=== PATIENT | female | born 1990 | race Caucasian/White ===

== ENCOUNTER 2025-02-10 16:32 | Emergency (ER) | payer SELFPAY ==
[2025-02-10 16:37] VITALS: BP 180/119
[2025-02-10 16:53] LABS: % Basophils 0.7 % (0-2); % Eosinophils 2.2 % (0-6); % Immature Granulocytes 0.3 % (0-0.5); % Lymphocytes 24.1 % (20.5-51.1); % Monocytes 7.8 % (1.7-9.3); % Neutrophils 64.9 % (42.2-75.2); Absolute Basophils 0.1 10^3/uL (0-0.2); Absolute Eosinophils 0.2 10^3/uL (0-0.7); Absolute Lymphocytes 2.3 10^3/uL (1.2-3.4); Absolute Monocytes 0.7 10^3/uL (0.1-0.6); Absolute Neutrophils 6.2 10^3/uL (1.4-6.5); Hematocrit 42.4 % (37.0-47.0); Hemoglobin 14.6 g/dL (12.0-16.0); Mean Corp Hgb Conc. 34.4 g/dL (33.0-37.0); Mean Corpuscular Hgb 30.4 pg (27.0-31.0); Mean Corpuscular Volume 88.1 fL (81.0-99.0); Mean Platelet Volume 9.7 fL (7.4-10.4); Nucleated Red Blood Cells % 0 %; Platelet Count 247 10^3/uL (130-400); Red Blood Cell Count 4.81 10^6/uL (4.20-5.40); Red Cell Dist. Width 13.6 % (11.5-14.5); White Blood Cell Count 9.5 10^3/uL (4.8-10.8)
[2025-02-10 17:04] LABS: HCG, Serum Qualitative Screen Negative
[2025-02-10 17:07] LABS: ALT (SGPT) 15 U/L (0-35); AST (SGOT) 17 U/L (14-36); Albumin 4.5 g/dl (3.5-5.0); Alkaline Phosphatase 34 U/L (38-126); Blood Urea Nitrogen 17 mg/dl (7-17); Carbon Dioxide 28 mmol/L (22-30); Chloride 108 mmol/L (98-107); Glucose 117 mg/dl (70-99); Lipase 194 U/L (23-300); Potassium 4.7 mmol/L (3.5-5.1); Sodium 142 mmol/L (135-145); eGFR > 60.00
[2025-02-10 18:48] LABS: Urine Albumin 1+ (Neg - Trace); Urine Bilirubin Negative (Negative); Urine Character Cloudy (Clear); Urine Color Yellow; Urine Glucose Negative (Negative); Urine Ketone Negative (Negative); Urine Leukocyte 3+ (Negative); Urine Nitrite Negative (Negative); Urine Occult Blood Negative (Negative); Urine Specific Gravity 1.015 (<1.030); Urine Urobilinogen Negative (Neg - 1+)
--- NOTE | 2025-02-10 19:04 | ED.GENMED ---
History of Present Illness
<FADY Schwartz - Last Filed: 02/10/25 22:44>
General
Chief Complaint: Abdominal Pain
Source: patient
Exam Limitations: none
Time Seen by Provider: 02/10/25 18:40
History of Present Illness
History of Present Illness:
34 y/o female pt with a PMH of HTN presenting to the emergency department c/o LLQ abdominal pain x 2 days. PT states the pain was sudden and sharp has been constant since it began, rates it a /10. States it woke her up from sleep twice, tried
taking naproxen with no relief, states her aunt gave her a Vicodin which seemed to improve the pain but did not completely make it go away. Pt states the pain radiates to the bilateral lower back. reports associated loose stools but denies blood or
mucus. Pt also states she has cloudy urine and has been urinating more frequently over the past week, denies dysuria and hematuria. Denies fever, fatigue, N/V, constipation, abnormal uterine bleeding. Denies a history of abdominal operations, kidney
stones and divirticulitis. Last menstrual 7 years ago, pt has IUD.
Past History
<FADY Schwartz - Last Filed: 02/10/25 22:44>
Past History
ED Past Medical History: HTN
ED Past Surgical History: None
Review of Systems
<FADY Schwartz - Last Filed: 02/10/25 22:44>
Review of Systems
Allergies reviewed?: Yes
Constitutional: Reports no symptoms
EENT: Reports no symptoms
Respiratory: Reports no symptoms
Cardiac: Reports no symptoms
ABD/GI: Reports abdominal pain
: Reports frequency and urgency
Musculoskeletal: Reports back pain
Skin: Reports no symptoms
Phy Exam
<FADY Schwartz - Last Filed: 02/10/25 22:44>
General Physical Exam
General Presentation: well appearing and no apparent distress
General age: appears stated age
General Skin: warm
General Habitus: normal
General Mental: alert
General Hydration: appears well hydrated
ENT Exam
ENT Exam: neck supple and normocephalic
Cardiovascular Exam
Cardiovascular Exam: regular rate/rhythm and normal peripheral pulses
Pulmonary Exam
Pulmonary Exam: lungs clear and chest non tender
Cough: no cough
Gastrointestinal Exam
Gastrointestinal Exam: normal bowel sounds, soft, no pulsatile mass, non distended, no cva tenderness and rebound
Palpation: left upper quadrant: Minimal tenderness, left lower quadrant: Mild tenderness, right upper quadrant: No tenderness and right lower quadrant: No tenderness
Auscultation of Abdomen: normal
Skin Exam
Skin Exam: normal color and warm/dry
Course
<FADY Schwartz - Last Filed: 02/10/25 22:44>
Orders/Labs/Results
Orders:
Orders
02/10/25 16:39
Test Result ONCE
02/10/25 16:42
Complete Blood Count/With Diff Urgent
Comprehensive Metabolic Panel Urgent
HCG, Serum Qualitative Screen Urgent
Lipase Urgent
02/10/25 18:10
Urine Culture Reflexed from UA [Urinalysis Reflex To Culture] Urgent
Date Specimen was Collected: 02/10/25
Time Specimen was Collected: 17:58
Urine Microscopic Reflex Cult Urgent
Urine Culture Urgent
LAITH Source: U
Specimen Description:
Date Specimen was Collected: 02/10/25
Time Specimen was Collected: 17:58
02/10/25 19:21
Vital Signs- Treatment ONCE
Frequency: q30m
02/10/25 19:36
Iohexol [Omnipaque] See Protocol PO NOW STA
02/10/25 19:37
CT Abd/pel W Iv And Oral Contr Urgent
Comment:
Reason For Exam: LLQ abdominal pain 24 hrs
02/10/25 22:37
Magnesium Citrate [Citroma] 300 ml PO ONCE ONE
Abnormal Lab Results
02/10/25 02/10/25
16:42 18:10
Absolute Monos (auto) 0.7 H 10^3/uL
(0.1-0.6)
Chloride 108 H mmol/L
(98-107)
Creatinine 1.1 H mg/dL
(0.6-1.0)
Glucose 117 H mg/dl
(70-99)
Alkaline Phosphatase 34 L U/L
(38-126)
Leukocyte Esterase Rfl 3+ A
(Negative)
Urine WBC (Reflex) 11-15 A /HPF
(0-5)
Urine Bacteria (Reflex) Moderate A
(Negative)
Urine Albumin (Reflex) 1+ A
(Neg - Trace)
02/10/25 16:42
02/10/25 16:42
Vital Signs
Initial and Last Documented VS:
Initial Vital Signs
Temp Pulse Resp BP Pulse Ox
99.1 F 94 16 180/119 100
02/10/25 16:37 02/10/25 16:37 02/10/25 16:37 02/10/25 16:37 02/10/25 16:37
Last Documented Vital Signs
Temp Pulse Resp BP Pulse Ox
99.1 F 66 16 167/105 100
02/10/25 16:37 02/10/25 22:21 02/10/25 22:21 02/10/25 22:21 02/10/25 22:21
Elvilt;Gal Fofana, DO - Last Filed: 02/11/25 03:01>
Orders/Labs/Results
Orders:
Orders
02/10/25 16:39
Test Result ONCE
02/10/25 16:42
Complete Blood Count/With Diff Urgent
Comprehensive Metabolic Panel Urgent
HCG, Serum Qualitative Screen Urgent
Lipase Urgent
02/10/25 18:10
Urine Culture Reflexed from UA [Urinalysis Reflex To Culture] Urgent
Date Specimen was Collected: 02/10/25
Time Specimen was Collected: 17:58
Urine Microscopic Reflex Cult Urgent
Urine Culture Urgent
LAITH Source: U
Specimen Description:
Date Specimen was Collected: 02/10/25
Time Specimen was Collected: 17:58
02/10/25 19:21
Vital Signs- Treatment ONCE
Frequency: q30m
02/10/25 19:36
Iohexol [Omnipaque] See Protocol PO NOW STA
02/10/25 19:37
CT Abd/pel W Iv And Oral Contr Urgent
Comment:
Reason For Exam: LLQ abdominal pain 24 hrs
02/10/25 22:37
Magnesium Citrate [Citroma] 300 ml PO ONCE ONE
Abnormal Lab Results
02/10/25 02/10/25
16:42 18:10
Absolute Monos (auto) 0.7 H 10^3/uL
(0.1-0.6)
Chloride 108 H mmol/L
(98-107)
Creatinine 1.1 H mg/dL
(0.6-1.0)
Glucose 117 H mg/dl
(70-99)
Alkaline Phosphatase 34 L U/L
(38-126)
Leukocyte Esterase Rfl 3+ A
(Negative)
Urine WBC (Reflex) 11-15 A /HPF
(0-5)
Urine Bacteria (Reflex) Moderate A
(Negative)
Urine Albumin (Reflex) 1+ A
(Neg - Trace)
02/10/25 16:42
02/10/25 16:42
Vital Signs
Initial and Last Documented VS:
Initial Vital Signs
Temp Pulse Resp BP Pulse Ox
99.1 F 94 16 180/119 100
02/10/25 16:37 02/10/25 16:37 02/10/25 16:37 02/10/25 16:37 02/10/25 16:37
Last Documented Vital Signs
Temp Pulse Resp BP Pulse Ox
99.1 F 66 16 167/105 100
02/10/25 16:37 02/10/25 22:21 02/10/25 22:21 02/10/25 22:21 02/10/25 22:21
<Gal Fofana DO - Last Filed: 02/11/25 03:01>
MDM/Problems Addressed
Differential Diagnosis Includes:
Bowel obstruction, kidney stone, diverticulitis, pyelonephritis, ovarian torsion
MDM/Problems Addressed:
34-year-old female with left lower quadrant abdominal pain, likely to constipation. Stable for discharge. Follow-up with primary care. Return precautions given.
<FADY Schwartz - Last Filed: 02/10/25 22:44>
*Critical Care Note
Total Time (30-74mins, 75-104mins- exclusive of procedures): Not Applicable
<Gal Fofana DO - Last Filed: 02/11/25 03:01>
*Radiology
Radiology exam reviewed: radiology read reviewed (CT abdomen pelvis shows moderate stool burden, otherwise no acute finding)
*Pulse Oximetry
Patient hypoxic: no
<Gal Fofana DO - Last Filed: 02/11/25 03:01>
Patient Management
Social determinants of health affecting care: Living situation and Strong social support
Escalation/DeEscalation of care consider admission/obs:
Admit not indicated
ED Attending Note
<FADY Schwartz - Last Filed: 02/10/25 22:44>
-
Portions of this chart may have been created with voice recognition software.� Occasional wrong word or��sound alike� substitutions may have occurred due to the inherent limitations of voice recognition software.
<Gal Fofana, DO - Last Filed: 02/11/25 03:01>
ED Attending Note
Patient seen and examined by attending physician: Yes
I performed a history and physical exam of patient and discussed management with resident, I reviewed resident's note and agree with documented findings and plan of care.: Yes
ED Attending Note:
I have reviewed and agree with history and treatment plan by FADY Schwartz. My exam revealed 34-year-old female no acute distress, left lower quadrant tenderness, minimal left pelvic/adnexal tenderness. Concern for diverticulitis versus
ovarian cyst versus kidney stone versus pyelonephritis. CT abdomen pelvis with oral contrast ordered.
Discharge Plan
Departure
Patient Disposition: Home (Routine Discharge)
Date of Disposition: 02/10/25
Time of Disposition: 22:36
Patient with high blood pressure during this ER visit?: Yes
Condition: Good
Discharge Problem:
Constipation, Abdominal pain
Instructions: Constipation, Adult (DC), Abdominal Pain, BLOOD PRESSURE
Referrals:
NONE,* [Family Provider] -
Activity Restrictions/Additional Instructions:
Follow-up primary care in 3 to 5 days. Return for any concerns.
Interventions
Interventions:
*Risk Screen - Suicide Last Done: 02/10/25 16:39
*Neglect/Abuse Screening Last Done: 02/10/25 16:39
*Nursing Disposition Last Done: 02/10/25 22:46
[facility] Assessment Last Done: 02/10/25 18:45
Discharge Date and Time
Discharge Date/Time: 02/10/25 22:46
Print Language: SETSWANA
[2025-02-10 19:40] VITALS: BP 183/104
[2025-02-10] MEDS: OMNIPAQUE 50 ML PO (19:53)
[2025-02-10 20:40] LABS: Urine Squamous Cell >30 /LPF (Few)
[2025-02-10 20:41] LABS: Urine Red Blood Cell 0-2 /HPF (0-2)
[2025-02-10 20:42] LABS: Urine Bacteria Moderate (Negative)
[2025-02-10 22:21] VITALS: BP 167/105
[2025-02-10] MEDS: CITROMA 300 ML PO (22:45)
== END 2025-02-10 22:46 | disposition home or self-care (01) ==
LOC: EMR 16:32
PROVIDERS: Emergency Medicine; EMERGENCY PHYSICIAN Emergency Medicine
DX: K59.00 Constipation, unspecified (principal); I10 Essential (primary) hypertension
CPT/HCPCS: 99284; 74177; 80053; 81003; 81015; 83690; 84703; 85025; 87086; Q9967